=== PATIENT | male | born 1940 | race Caucasian/White ===

== ENCOUNTER 2017-03-28 16:09 | Emergency (ER) | payer MEDICARE, BC ==
[2017-03-28 19:48] VITALS: BP 142/83
--- NOTE | 2017-03-28 20:24 | EDM.PDOC ---
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 No prior shoulder injuries [place] while he has an ache in it. He's otherwise been in relatively good health season of other injuries. No neck injuries have injuries or loss of consciousness and no other complaints. He is unable to abduct his left arm] Review of systems: As per history of present illness and below otherwise all systems reviewed and negative. Past medical history: As per history of present illness and as reviewed below otherwise noncontributory. Surgical history: As per history of present illness and as reviewed below otherwise noncontributory. Social history: No reported history of drug or alcohol abuse. Family history: As per history of present illness and as reviewed below otherwise noncontributory. Physical exam: HEENT: Atraumatic, normocephalic, pupils reactive, negative for conjunctival pallor or scleral icterus, mucous membranes moist, throat clear, neck supple, nontender, trachea midline. Lungs: Clear to auscultation, breath sounds equal bilaterally, chest nontender. Heart: S1S2, regular, negative for clicks, rubs, or JVD. Abdomen: Soft, nondistended, nontender. Negative for masses or hepatosplenomegaly. Negative for costovertebral tenderness. Pelvis: Stable nontender. Genitourinary: Deferred. Rectal: Deferred. Extremities: Pain localizes to the rotator cuff of the left shoulder and he is unable to abduct his arm and examination reveals no pain on palpation with full range of motion may be slightly swollen. Neuro: Awake, alert, oriented. Cranial nerves II through XII unremarkable. Cerebellum unremarkable. Motor and sensory unremarkable throughout. Exam nonfocal. Diagnostics: [X-rays of the shoulder and left hand reveal no fractures and appreciating] Therapeutics: [] Impression: [Acute right rotator cuff injury] Plan: [He is from [place] when I sent him out with a disc of his x-rays he will follow-up there. Placing him in a sling and also providing him with 18 [address] for pain control. We discussed the usual course and sent home therapy he can do and the possibility that he may end up needing an MRI and surgery worse case scenario.] Definitive disposition and diagnosis as appropriate pending reevaluation and review of above. Left Arm Pain Score (Numeric/FACES): 3 - Related Data Allergies Allergy/AdvReac Type Severity Reaction Status Date / Time kasey family Allergy Hives Uncoded 03/28/17 19:55 Home Meds: Home Meds Acetaminophen [Tylenol Extra Strength] 500 mg PO ASDIRECTED PRN 03/28/17 [ History] Aspirin 81 mg PO DAILY 03/28/17 [History] Past Medical History - Past Health History Medical/Surgical History: Denies Medical/Surgical History HEENT History: Reports: Impaired Vision - Infectious Disease History Infectious Disease History: Reports: Chicken Pox, Measles, Mumps Social & Family History - Tobacco Use Smoking Status *Q: Never Smoker - Caffeine Use Caffeine Use: Reports: Coffee - Recreational Drug Use Recreational Drug Use: No Review of Systems - Review of Systems Review Of Systems: ROS reveals no pertinent complaints other than HPI. ED EXAM, GENERAL - Physical Exam Exam: See Below Course - Vital Signs Last Recorded V/S: Last Vital Signs Temp 36.8 C 03/28/17 19:46 Pulse 67 03/28/17 19:46 Resp 15 03/28/17 19:46 BP 142/83 H 03/28/17 19:46 Pulse Ox 95 03/28/17 19:46 - Orders/Labs/Meds Orders: Active Orders 24 hr Category Date Time Status Hand 2V Lt [CR] Stat Exams 03/28/17 18:35 Taken Shoulder Comp Lt [CR] Stat Exams 03/28/17 18:35 Taken Departure - Departure Time of Disposition: 20:23 Disposition: Home, Self-Care 01 Condition: Good Clinical Impression: Injury of left rotator cuff Qualifiers: Encounter type: initial encounter Qualified Code(s): S46.002A - Unspecified injury of muscle(s) and tendon(s) of the rotator cuff of left shoulder, initial encounter - Discharge Information Forms: ED Department Discharge Additional Instructions: Once again I believe you have an acute rotator cuff injury. He will need to follow-up with your doctor as we discussed. Your provided with a sling but can take your arm of the sling and do some range of motion exercises. You can apply ice to the area and we are providing you with some pain medication. In addition of this you can take [id number] Advil or Naprosyn. - My Orders Last 24 Hours: My Active Orders 03/28/17 18:35 Hand 2V Lt [CR] Stat Shoulder Comp Lt [CR] Stat - Assessment/Plan Last 24 Hours: My Active Orders 03/28/17 18:35 Hand 2V Lt [CR] Stat Shoulder Comp Lt [CR] Stat
--- NOTE | 2017-03-29 08:51 | CR ---
Shoulder Comp Lt HISTORY: fall, injury FINDINGS: No acute fracture or dislocation is identified. Bony architecture and joint spaces are preserved. Left upper chest is clear. AC joint is not widened. Soft tissues are unremarkable. IMPRESSION: No acute left shoulder abnormality identified.
--- NOTE | 2017-03-29 08:54 | CR ---
Hand 2V Lt HISTORY: fall, injury FINDINGS: No acute fracture or dislocation is identified. Bony architecture is preserved. There is joint spac e. Scattered marginal osteophytes at the DIP and PIP joints. Carpal bone alignment is satisfactory. Soft tissues are unremarkable. IMPRESSION: Degenerative changes. At the DIP and PIP joints. No acute left hand abnormality identified.
== END 2017-03-28 20:35 | disposition home or self-care (01) ==
LOC: JP.ED 16:09
DX: S46.002A Unspecified injury of muscle(s) and tendon(s) of the rotator cuff of left shoulder, initial encounter (principal); Z79.82 Long term (current) use of aspirin; Z88.4 Allergy status to anesthetic agent; W19.XXXA Unspecified fall, initial encounter
CPT/HCPCS: 73030-26-LT; 73030-LT; 73120-26-LT; 73120-LT; 99284; 99285